=== PATIENT | male | born 1975 | race Hispanic/Latino ===

== ENCOUNTER 2016-02-29 11:09 | Emergency (ER) | payer OTHER ==
[2016-02-29] MEDS ORDERED: GI COCKTAIL 50ML BTL(HYOSCYAMINE/MAALOX/LIDOCAINE VISCOUS)(1:3:1) As Ordered ONE (12:20)
[2016-02-29] MEDS ORDERED: ONDANSETRON 4 MG ORAL DISINTEGRATING TAB (S0181) As Ordered ONE (12:34)
--- NOTE | 2016-02-29 12:49 | REP ---
Clinical: Foreign body. Technique: AP and lateral soft tissue neck. Findings: Airway appears patent and normal. Prevertebral soft tissues and surrounding soft tissues are unremarkable and without subcutaneous emphysema or radiodense foreign body. Osseous structures are intact and normal. Impression: Normal soft tissue neck radiographs. No foreign body identified. Signed by Carlito Nettles MD 02/29/2016 12:41 P
[2016-02-29] MEDS ORDERED: LIDOCAINE W/EPINEPHRINE 1% 20ML VIAL As Ordered ONE (13:54)
--- NOTE | 2016-02-29 14:58 | EDDOCDS ---
Nurse's Notes [facility] Name: Ebenezer Henriquez Age: 40 yrs Sex: Male : 1975 Arrival Date: 02/29/2016 Time: 11:09 Bed I6 / 28 [facility] Diagnosis: Esophagitis-Secondary Emesis (alcohol induced) Presentation: 02/28 11:14 Presenting complaint: Patient states: vomited this am and states something is stuck in po his throat. reports painful swallowing, able to swallow own saliva. Adult Sepsis Screening: The patient does not have new or worsening altered mentation. Patient's respiratory rate is less than 22. Systolic blood pressure is greater than 100. Patient has a qSOFA score of 0- Negative Sepsis Screen. Suicide/Homicide risk assessment- the patient denies having any suicidal and/or homicidal ideations and does not present with any other emotional, behavioral or mental health complaints. Status: The patient is an active duty social services assistant. Transition of care: patient was not received from another setting of care. 11:14 Acuity: CLAUDIA Level 3 po 11:14 Method Of Arrival: Walkin/Carried/Asstd po Triage Assessment: 11:16 General: Appears in no apparent distress, Behavior is appropriate for age, cooperative, po pleasant. Pain: Location: left side of neck Pain currently is 8 out of 10 on a pain scale. Quality of pain is described as sharp, Is continuous. Pt Declines HIV testing. EENT: Reports pain when swallowing. Respiratory: Airway is patent Respiratory effort is even, unlabored. Derm: Skin is pink, warm & dry. Historical: - Allergies: no known allergies; - Home Meds: 1. none - PMHx: Seasonal Allergies; - PSHx: none; - Social history: Smoking status: Patient states former smoker of tobacco. No barriers to communication noted, The patient speaks fluent Yoruba. - Family history: Not pertinent. - : The pt / caregiver states he / she is not on anticoagulants. Home medication list is obtained from the patient. - Exposure Risk Screening:: None identified. Screenin:25 Screening information is obtained from the patient. Fall risk: No risks identified. mlb1 Assistance ADL's: requires no assistance with activities of daily living. Abuse/DV Screen: The patient / caregiver reports he/she is: not in a situation that causes fear, pain or injury. Nutritional screening: No deficits noted. Advance Directives: Currently, there is no health care proxy. There is no active DNR order. There is. home support is adequate. Assessment: 12:44 General: Appears in no apparent distress, comfortable, Behavior is appropriate for age, hs1 cooperative. EENT: Reports that he cannot swallow water. Cardiovascular: No deficits noted. Respiratory: Airway is patent Respiratory effort is even, unlabored, Respiratory pattern is regular, symmetrical. GI: No deficits noted. : No deficits noted. Derm: Skin is pink, warm & dry. normal. 13:53 General: Dr. Rossi in to examine patient. jc4 14:05 General: Nasopharyngeal scope inserted in left nare by Dr. Rossi with nurse escort. jc4 Pt tolerated procedure well. No foreign body found per MD. 14:46 General: Pt sipping brittany gordon. Complains of pain when swallowing. Is able to retain jc4 fluid. No distress noted at this time. 14:55 General: Appears in no apparent distress, comfortable, Behavior is cooperative. jc4 Neurological: Level of Consciousness is awake, alert, Oriented to person, place, time. EENT: patient able to retain fluid. Reports pain when swallowing. Respiratory: Airway is patent Respiratory effort is even, unlabored, Respiratory pattern is regular, symmetrical. Derm: Skin is pink, warm & dry. Vital Signs: 11:11 BP 155 / 94; Pulse 88; Resp 18; Temp 98.1(O); Pulse Ox 97% on R/A; Weight 83.01 kg (R); sar1 Height 6 ft. 0 in. (182.88 cm); Pain 8/10; 14:55 BP 131 / 77; Pulse 72; Resp 20; Temp 97.3(O); Pulse Ox 98% on R/A; jc4 11:11 Body Mass Index 24.82 (83.01 kg, 182.88 cm) sar1 Vitals: 11:11 Log In Time: February 29, 2016 at 11:11. sar1 12:31 Strep Screen is obtained and tested: Negative, a GATSNEG culture is ordered in [facility] mlb1 and sent. ED Course: 11:10 Patient visited by Zenobia Drake, Stock Digger. sar1 11:10 Patient moved to Waiting sar1 11:11 [facility] is Private Physician. sar1 11:12 Patient moved to Pre RCE sar1 11:15 Triage Initiated po 11:17 Arm band placed on right wrist. Patient placed in waiting room. po 11:18 Patient visited by Shane Maradiaga,SELMA. po 11:54 Patient moved to Triage 1 ms18 11:55 Patient visited by Sowmya Florez,SELMA. ms18 12:06 Kristal Romano PA-C is PHCP. ef1 12:06 Deborah Toscano MD is Attending Physician. ef1 12:07 Patient visited by Kristal Romano PA-C. ef1 12:25 The patient / caregiver is instructed regarding the plan of care and ED course. mlb1 12:25 No IV's were initiated during this patient's visit. No procedures done that require mlb1 assistance. 12:30 Patient visited by Kristal Romano PA-C. ef1 12:32 Essence Saini RN is Primary Nurse. ms18 12:32 Patient moved to I ms18 12:36 GATS (NEGATIVE STREP SCREEN) Sent. mlb1 13:01 Patient visited by Kristal Romano PA-C. ef1 13:10 Soft Tissue Neck Returned. EDMS 13:23 Patient visited by Kristal Romano PA-C. ef1 13:37 [facility] Payment Agreement was scanned into FTR[employer] and attached to record. jp5 14:00 Patient visited by Kristal Romano PA-C. ef1 14:40 Patient visited by Kristal Romano PA-C. ef1 14:43 [facility] is Referral Physician. ef1 Administered Medications: 12:24 Drug: GI Cocktail - (Alum-Mag Hydroxide-Simeth Suspension 225 mg-200 mg-25 mg/5 mL 30 ms18 ml, Lidocaine Liquid 2 % 10 ml, Hyoscyamine Liquid 10 ml) Route: PO; 12:35 Drug: Ondansetron ODT 4 mg [ondansetron 4 mg disintegrating tablet (1 tabs)] Route: PO; mlb1 14:03 Drug: Lidocaine-Epinephrine 10 ml [lidocaine-epinephrine 1 %-1:100,000 injection jc4 solution (10 mL)] {Note: Given to Dr. Rossi for use .} Route: Infiltration; Order Results: Radiology Order: Soft Tissue Neck Test: Soft Tissue Neck REASON FOR EXAMINATION: Foreign Body; Clinical: Foreign body.; ; Technique: AP and lateral soft tissue neck.; ; Findings:; Airway appears patent and normal. Prevertebral soft tissues and surrounding soft; tissues are unremarkable and without subcutaneous emphysema or radiodense foreign; body. Osseous structures are intact and normal.; ; Impression:; Normal soft tissue neck radiographs. No foreign body identified.; ; ; Signed by; Carlito Nettles MD 02/29/2016 12:41 P; Outcome: 14:43 Discharge ordered by Provider. ef1 14:56 Discharge Assessment: Patient awake, alert and oriented x 3. No cognitive and/or jc4 functional deficits noted. Patient verbalized understanding of disposition instructions. patient administered narcotics - no. The following High Risk Discharge criteria are identified: None. Discharged to home ambulatory. Condition: stable. Discharge instructions given to patient, Instructed on discharge instructions, follow up and referral plans. medication usage, Demonstrated understanding of instructions, medications, Pt was receptive of discharge instructions/ teaching. No special radiology studies were completed. Property :Personal belongings accompany Pt. 14:57 Patient left the ED. jc4 Signatures: Dispatcher MedHost EDMS Shane Maradiaga,RN RN Suresh Bhakta, RN RN mlb1 Kristal Romano PA-C PAJazmineC ef1 Savanna Newell RN RN hs1 Essence Saini RN RN jc4 Sowmya Florez RN RN ms18 Zenobia Drake, Stock Digger [facility] Nancy Ugarte 5 Corrections: (The following items were deleted from the chart) 11:18 11:14 Presenting complaint: Patient states: vomited this am and states something is po stuck in his esophagus po MTDD
--- NOTE | 2016-02-29 14:58 | EDDOCDS ---
Physician Documentation [facility] Name: Ebenezer Henriquez Age: 40 yrs Sex: Male : 1975 Arrival Date: 02/29/2016 Time: 11:09 Bed I6 / 28 [facility] Dis[facility]: 02/29/16 14:43 Discharged to Home/Self Care. Impression: Esophagitis - Secondary Emesis (alcohol induced). - Condition is Stable. - Discharge Instructions: Esophagitis. - Prescriptions for Maalox Advanced 200- 200-20 mg/5 mL Oral suspension - take 10 milliliter by ORAL route 3 times per day; 1 tube. - Medication Reconciliation, Local Pharmacy Hours form. - Follow up: [facility]; When: 1 - 2 days; Reason: Recheck today's complaints, Continuance of care. Follow up: Emergency Department; Reason: Worsening of conditions. - Problem is new. - Symptoms have improved. - Notes: No spicy foods per Dr Rossi's guidance. Maalox 2 tsp 3 x a day. Solids as tolerated. Increase water intake. Historical: - Allergies: no known allergies; - Home Meds: 1. none - PMHx: Seasonal Allergies; - PSHx: none; - Social history: Smoking status: Patient states former smoker of tobacco. No barriers to communication noted, The patient speaks fluent Bolivian. - Family history: Not pertinent. - : The pt / caregiver states he / she is not on anticoagulants. Home medication list is obtained from the patient. - Exposure Risk Screening:: None identified. Vital Signs: 02/28 11:11 BP 155 / 94; Pulse 88; Resp 18; Temp 98.1(O); Pulse Ox 97% on R/A; Weight 83.01 kg / sar1 183.01 lbs (R); Height 6 ft. 0 in. (182.88 cm); Pain 8/10; 14:55 BP 131 / 77; Pulse 72; Resp 20; Temp 97.3(O); Pulse Ox 98% on R/A; jc4 11:11 Body Mass Index 24.82 (83.01 kg, 182.88 cm) sar1 MDM: 12:18 GI Cocktail - (Alum-Mag Hydroxide-Simeth 30 ml, Lidocaine 10 ml, Hyoscyamine 10 ml) PO ef1 once; Pre-mixed 50mL unit dose ordered. 12:19 Strep Screen, Nursing ordered. ef1 12:31 Ondansetron ODT Oral Disintegrating Tablet 4 mg PO once ordered. ef1 12:32 GATS (NEGATIVE STREP SCREEN) Ordered. EDMS 12:32 Soft Tissue Neck Ordered. EDMS 13:02 NOTHING BY MOUTH+DIET ordered. EDMS 13:37 [facility] Payment Agreement was scanned into Overblog and attached to record. jp5 13:37 Financial registration complete. jp5 13:53 Lidocaine-Epinephrine 1 %-1:100,000 10 ml Infiltration once; to bedside ordered. ef1 14:45 Recheck B/P ordered. ef1 14:46 Fluid Challenge ordered. ef1 Administered Medications: 12:24 Drug: GI Cocktail - (Alum-Mag Hydroxide-Simeth Suspension 225 mg-200 mg-25 mg/5 mL 30 ms18 ml, Lidocaine Liquid 2 % 10 ml, Hyoscyamine Liquid 10 ml) Route: PO; 12:35 Drug: Ondansetron ODT 4 mg [ondansetron 4 mg disintegrating tablet (1 tabs)] Route: PO; mlb1 14:03 Drug: Lidocaine-Epinephrine 10 ml [lidocaine-epinephrine 1 %-1:100,000 injection jc4 solution (10 mL)] {Note: Given to Dr. Rossi for use .} Route: Infiltration; Signatures: Dispatcher MedHost EDMN Shane Maradiaga,RN RN po Suresh Rachel RN RN mlb1 Kristal Romano, PA-C PA-C ef1 Essence Saini RN RN jc4 Nancy Ugarte 5 Sowmya Florez RN ms18 The chart was reviewed and I authenticate all verbal orders and agree with the evaluation and treatment provided.Attachments: 13:37 [facility] Payment Agreement jp5 MTDD
--- NOTE | 2016-03-02 15:58 | EDDOCDS ---
Physician Documentation [facility] Name: Ebenezer Henriquez Age: 40 yrs Sex: Male : 1975 Arrival Date: 02/29/2016 Time: 11:09 Bed I6 / 28 [facility] Disposition: 02/29/16 14:43 Discharged to Home/Self Care. Impression: Esophagitis - Secondary Emesis (alcohol induced). - Condition is Stable. - Discharge Instructions: Esophagitis. - Prescriptions for Maalox Advanced 200- 200-20 mg/5 mL Oral suspension - take 10 milliliter by ORAL route 3 times per day; 1 tube. - Medication Reconciliation, Local Pharmacy Hours form. - Follow up: [facility]; When: 1 - 2 days; Reason: Recheck today's complaints, Continuance of care. Follow up: Emergency Department; Reason: Worsening of conditions. - Problem is new. - Symptoms have improved. - Notes: No spicy foods per Dr Rossi's guidance. Maalox 2 tsp 3 x a day. Solids as tolerated. Increase water intake. Historical: - Allergies: no known allergies; - Home Meds: 1. none - PMHx: Seasonal Allergies; - PSHx: none; - Social history: Smoking status: Patient states former smoker of tobacco. No barriers to communication noted, The patient speaks fluent Algerian. - Family history: Not pertinent. - : The pt / caregiver states he / she is not on anticoagulants. Home medication list is obtained from the patient. - Exposure Risk Screening:: None identified. Vital Signs: 02/28 11:11 BP 155 / 94; Pulse 88; Resp 18; Temp 98.1(O); Pulse Ox 97% on R/A; Weight 83.01 kg / sar1 183.01 lbs (R); Height 6 ft. 0 in. (182.88 cm); Pain 8/10; 14:55 BP 131 / 77; Pulse 72; Resp 20; Temp 97.3(O); Pulse Ox 98% on R/A; jc4 11:11 Body Mass Index 24.82 (83.01 kg, 182.88 cm) sar1 MDM: 12:18 GI Cocktail - (Alum-Mag Hydroxide-Simeth 30 ml, Lidocaine 10 ml, Hyoscyamine 10 ml) PO ef1 once; Pre-mixed 50mL unit dose ordered. 12:19 Strep Screen, Nursing ordered. ef1 12:31 Ondansetron ODT Oral Disintegrating Tablet 4 mg PO once ordered. ef1 12:32 GATS (NEGATIVE STREP SCREEN) Ordered. EDMS 12:32 Soft Tissue Neck Ordered. EDMS 13:02 NOTHING BY MOUTH+DIET ordered. EDMS 13:37 [facility] Payment Agreement was scanned into Vigno and attached to record. 5 13:37 Financial registration complete. jp5 13:53 Lidocaine-Epinephrine 1 %-1:100,000 10 ml Infiltration once; to bedside ordered. ef1 14:45 Recheck B/P ordered. ef1 14:46 Fluid Challenge ordered. ef1 17:43 T-Sheet-- Draft Copy was scanned into Vigno and attached to record. klr 01 12:51 Consents was scanned into Vigno and attached to record. gb 12:52 Radiology Report was scanned into Vigno and attached to record. gb Administered Medications: 02/28 12:24 Drug: GI Cocktail - (Alum-Mag Hydroxide-Simeth Suspension 225 mg-200 mg-25 mg/5 mL 30 ms18 ml, Lidocaine Liquid 2 % 10 ml, Hyoscyamine Liquid 10 ml) Route: PO; 12:35 Drug: Ondansetron ODT 4 mg [ondansetron 4 mg disintegrating tablet (1 tabs)] Route: PO; mlb1 14:03 Drug: Lidocaine-Epinephrine 10 ml [lidocaine-epinephrine 1 %-1:100,000 injection jc4 solution (10 mL)] {Note: Given to Dr. Rossi for use .} Route: Infiltration; Signatures: Dispatcher MedHost EDMS Shane Maradiaga,RN RN po Sindy Bruno, Reg Reg gb Suresh Rachel RN RN mlb1 Kristal Romano PA-C PAMaryuri ef1 Essence Saini RN RN jc4 Nancy Ugarte jp5 Deidre Bazzi Mallory RN ms18 The chart was reviewed and I authenticate all verbal orders and agree with the evaluation and treatment provided.Attachments: 13:37 [facility] Payment Agreement 5 17:43 T-Sheet-- Draft Copy [facility] Chart Complete MTDD
--- NOTE | 2016-03-02 15:58 | EDDOCDS ---
Physician Documentation [facility] Name: Ebenezer Henriquez Age: 40 yrs Sex: Male : 1975 Arrival Date: 02/29/2016 Time: 11:09 Bed I6 / 28 [facility] Disposition: 02/29/16 14:43 Discharged to Home/Self Care. Impression: Esophagitis - Secondary Emesis (alcohol induced). - Condition is Stable. - Discharge Instructions: Esophagitis. - Prescriptions for Maalox Advanced 200- 200-20 mg/5 mL Oral suspension - take 10 milliliter by ORAL route 3 times per day; 1 tube. - Medication Reconciliation, Local Pharmacy Hours form. - Follow up: [place]; When: 1 - 2 days; Reason: Recheck today's complaints, Continuance of care. Follow up: Emergency Department; Reason: Worsening of conditions. - Problem is new. - Symptoms have improved. - Notes: No spicy foods per Dr Rossi's guidance. Maalox 2 tsp 3 x a day. Solids as tolerated. Increase water intake. Historical: - Allergies: no known allergies; - Home Meds: 1. none - PMHx: Seasonal Allergies; - PSHx: none; - Social history: Smoking status: Patient states former smoker of tobacco. No barriers to communication noted, The patient speaks fluent [place]. - Family history: Not pertinent. - : The pt / caregiver states he / she is not on anticoagulants. Home medication list is obtained from the patient. - Exposure Risk Screening:: None identified. Vital Signs: 02/28 11:11 BP 155 / 94; Pulse 88; Resp 18; Temp 98.1(O); Pulse Ox 97% on R/A; Weight 83.01 kg / sar1 183.01 lbs (R); Height 6 ft. 0 in. (182.88 cm); Pain 8/10; 14:55 BP 131 / 77; Pulse 72; Resp 20; Temp 97.3(O); Pulse Ox 98% on R/A; jc4 11:11 Body Mass Index 24.82 (83.01 kg, 182.88 cm) sar1 MDM: 12:18 GI Cocktail - (Alum-Mag Hydroxide-Simeth 30 ml, Lidocaine 10 ml, Hyoscyamine 10 ml) PO ef1 once; Pre-mixed 50mL unit dose ordered. 12:19 Strep Screen, Nursing ordered. ef1 12:31 Ondansetron ODT Oral Disintegrating Tablet 4 mg PO once ordered. ef1 12:32 GATS (NEGATIVE STREP SCREEN) Ordered. EDMS 12:32 Soft Tissue Neck Ordered. EDMS 13:02 NOTHING BY MOUTH+DIET ordered. EDMS 13:37 [facility] Payment Agreement was scanned into DocSend and attached to record. 5 13:37 Financial registration complete. jp5 13:53 Lidocaine-Epinephrine 1 %-1:100,000 10 ml Infiltration once; to bedside ordered. ef1 14:45 Recheck B/P ordered. ef1 14:46 Fluid Challenge ordered. ef1 17:43 T-Sheet-- Draft Copy was scanned into DocSend and attached to record. klr 01 12:51 Consents was scanned into DocSend and attached to record. gb 12:52 Radiology Report was scanned into DocSend and attached to record. gb Administered Medications: 02/28 12:24 Drug: GI Cocktail - (Alum-Mag Hydroxide-Simeth Suspension 225 mg-200 mg-25 mg/5 mL 30 ms18 ml, Lidocaine Liquid 2 % 10 ml, Hyoscyamine Liquid 10 ml) Route: PO; 12:35 Drug: Ondansetron ODT 4 mg [ondansetron 4 mg disintegrating tablet (1 tabs)] Route: PO; mlb1 14:03 Drug: Lidocaine-Epinephrine 10 ml [lidocaine-epinephrine 1 %-1:100,000 injection jc4 solution (10 mL)] {Note: Given to Dr. Rossi for use .} Route: Infiltration; Signatures: Dispatcher MedHost EDMS Shane Maradiaga,RN RN po Sindy Bruno, Reg Reg gb Suresh Rachel RN RN mlb1 Kristal Romano PA-C PAMaryuri ef1 Essence Saini RN RN jc4 Nancy Ugarte jp5 Deidre Bazzi Mallory RN ms18 The chart was reviewed and I authenticate all verbal orders and agree with the evaluation and treatment provided.Attachments: 13:37 [facility] Payment Agreement 5 17:43 T-Sheet-- Draft Copy [facility] Chart Complete MTDD
--- NOTE | 2016-03-02 15:58 | EDDOCDS ---
Nurse's Notes [facility] Name: Ebenezer Henriquez Age: 40 yrs Sex: Male : 1975 Arrival Date: 02/29/2016 Time: 11:09 Bed I6 / 28 [facility] Diagnosis: Esophagitis-Secondary Emesis (alcohol induced) Presentation: 02/28 11:14 Presenting complaint: Patient states: vomited this am and states something is stuck in po his throat. reports painful swallowing, able to swallow own saliva. Adult Sepsis Screening: The patient does not have new or worsening altered mentation. Patient's respiratory rate is less than 22. Systolic blood pressure is greater than 100. Patient has a qSOFA score of 0- Negative Sepsis Screen. Suicide/Homicide risk assessment- the patient denies having any suicidal and/or homicidal ideations and does not present with any other emotional, behavioral or mental health complaints. Status: The patient is an active duty customer service advocate. Transition of care: patient was not received from another setting of care. 11:14 Acuity: CLAUDIA Level 3 po 11:14 Method Of Arrival: Walkin/Carried/Asstd po Triage Assessment: 11:16 General: Appears in no apparent distress, Behavior is appropriate for age, cooperative, po pleasant. Pain: Location: left side of neck Pain currently is 8 out of 10 on a pain scale. Quality of pain is described as sharp, Is continuous. Pt Declines HIV testing. EENT: Reports pain when swallowing. Respiratory: Airway is patent Respiratory effort is even, unlabored. Derm: Skin is pink, warm & dry. Historical: - Allergies: no known allergies; - Home Meds: 1. none - PMHx: Seasonal Allergies; - PSHx: none; - Social history: Smoking status: Patient states former smoker of tobacco. No barriers to communication noted, The patient speaks fluent Romanian. - Family history: Not pertinent. - : The pt / caregiver states he / she is not on anticoagulants. Home medication list is obtained from the patient. - Exposure Risk Screening:: None identified. Screenin:25 Screening information is obtained from the patient. Fall risk: No risks identified. mlb1 Assistance ADL's: requires no assistance with activities of daily living. Abuse/DV Screen: The patient / caregiver reports he/she is: not in a situation that causes fear, pain or injury. Nutritional screening: No deficits noted. Advance Directives: Currently, there is no health care proxy. There is no active DNR order. There is. home support is adequate. Assessment: 12:44 General: Appears in no apparent distress, comfortable, Behavior is appropriate for age, hs1 cooperative. EENT: Reports that he cannot swallow water. Cardiovascular: No deficits noted. Respiratory: Airway is patent Respiratory effort is even, unlabored, Respiratory pattern is regular, symmetrical. GI: No deficits noted. : No deficits noted. Derm: Skin is pink, warm & dry. normal. 13:53 General: Dr. Rossi in to examine patient. jc4 14:05 General: Nasopharyngeal scope inserted in left nare by Dr. Rossi with nurse escort. jc4 Pt tolerated procedure well. No foreign body found per MD. 14:46 General: Pt sipping brittany gordon. Complains of pain when swallowing. Is able to retain jc4 fluid. No distress noted at this time. 14:55 General: Appears in no apparent distress, comfortable, Behavior is cooperative. jc4 Neurological: Level of Consciousness is awake, alert, Oriented to person, place, time. EENT: patient able to retain fluid. Reports pain when swallowing. Respiratory: Airway is patent Respiratory effort is even, unlabored, Respiratory pattern is regular, symmetrical. Derm: Skin is pink, warm & dry. Vital Signs: 11:11 BP 155 / 94; Pulse 88; Resp 18; Temp 98.1(O); Pulse Ox 97% on R/A; Weight 83.01 kg (R); sar1 Height 6 ft. 0 in. (182.88 cm); Pain 8/10; 14:55 BP 131 / 77; Pulse 72; Resp 20; Temp 97.3(O); Pulse Ox 98% on R/A; jc4 11:11 Body Mass Index 24.82 (83.01 kg, 182.88 cm) sar1 Vitals: 11:11 Log In Time: February 29, 2016 at 11:11. sar1 12:31 Strep Screen is obtained and tested: Negative, [facility] and sent. ED Course: 11:10 Patient visited by Zenobia Drake, Media Analytics Manager. sar1 11:10 Patient moved to Waiting sar1 11:11 [facility] is Private Physician. sar1 11:12 Patient moved to Pre RCE sar1 11:15 Triage Initiated po 11:17 Arm band placed on right wrist. Patient placed in waiting room. po 11:18 Patient visited by Shane Maradiaga,SELMA. po 11:54 Patient moved to Triage 1 ms18 11:55 Patient visited by Sowmya Florez,SELMA. ms18 12:06 Kristal Romano PA-C is PHCP. ef1 12:06 Deborah Toscano MD is Attending Physician. ef1 12:07 Patient visited by Kristal Romano PA-C. ef1 12:25 The patient / caregiver is instructed regarding the plan of care and ED course. mlb1 12:25 No IV's were initiated during this patient's visit. No procedures done that require mlb1 assistance. 12:30 Patient visited by Kristal Romano PA-C. ef1 12:32 Essence Saini RN is Primary Nurse. ms18 12:32 Patient moved to I ms18 12:36 GATS (NEGATIVE STREP SCREEN) Sent. mlb1 13:01 Patient visited by Kristal Romano PA-C. ef1 13:10 Soft Tissue Neck Returned. EDMS 13:23 Patient visited by Kristal Romano PA-C. ef1 13:37 [facility] Payment Agreement was scanned into [employer] and attached to record. jp5 14:00 Patient visited by Kristal Romano PA-C. ef1 14:40 Patient visited by Kristal Romano PA-C. ef1 14:43 [facility] is Referral Physician. ef1 17:43 T-Sheet-- Draft Copy was scanned into [employer] and attached to record. klr 03/01 12:51 Consents was scanned into [employer] and attached to record. gb 12:52 Radiology Report was scanned into [employer] and attached to record. gb Administered Medications: 02/28 12:24 Drug: GI Cocktail - (Alum-Mag Hydroxide-Simeth Suspension 225 mg-200 mg-25 mg/5 mL 30 ms18 ml, Lidocaine Liquid 2 % 10 ml, Hyoscyamine Liquid 10 ml) Route: PO; 12:35 Drug: Ondansetron ODT 4 mg [ondansetron 4 mg disintegrating tablet (1 tabs)] Route: PO; mlb1 14:03 Drug: Lidocaine-Epinephrine 10 ml [lidocaine-epinephrine 1 %-1:100,000 injection jc4 solution (10 mL)] {Note: Given to Dr. Rossi for use .} Route: Infiltration; Attachments: 03/01 12:51 Consents gb Order Results: Lab Order: GATS (NEGATIVE STREP SCREEN); SPEC'M 02/29/16 12:36 Test: GATS CULTURE (NEG STREP SCR); Value: GATS RESULT NEGATIVE FOR STREP PYOGENES (GROUP A); Status: F Radiology Order: Soft Tissue Neck Test: Soft Tissue Neck REASON FOR EXAMINATION: Foreign Body; Clinical: Foreign body.; ; Technique: AP and lateral soft tissue neck.; ; Findings:; Airway appears patent and normal. Prevertebral soft tissues and surrounding soft; tissues are unremarkable and without subcutaneous emphysema or radiodense foreign; body. Osseous structures are intact and normal.; ; Impression:; Normal soft tissue neck radiographs. No foreign body identified.; ; ; Signed by; Carlito Nettles MD 02/29/2016 12:41 P; Outcome: 02/28 14:43 Discharge ordered by Provider. ef1 14:56 Discharge Assessment: Patient awake, alert and oriented x 3. No cognitive and/or jc4 functional deficits noted. Patient verbalized understanding of disposition instructions. patient administered narcotics - no. The following High Risk Discharge criteria are identified: None. Discharged to home ambulatory. Condition: stable. Discharge instructions given to patient, Instructed on discharge instructions, follow up and referral plans. medication usage, Demonstrated understanding of instructions, medications, Pt was receptive of discharge instructions/ teaching. No special radiology studies were completed. Property :Personal belongings accompany Pt. 14:57 Patient left the ED. jc4 Signatures: Dispatcher [employer] EDMS Shane Maradiaga RN RN po Sindy Bruno, Reg Reg Suresh Gallo RN RN mlb1 Kristal Romano, PA-C PA-C ef1 Savanna Newell RN RN hs1 Essence Saini RN RN jc4 Sowmya Florez RN RN ms18 Zenobia Drake, Media Analytics Manager Unit sar1 Nancy Ugarte jpDeidre Childress Corrections: (The following items were deleted from the chart) 11:18 11:14 Presenting complaint: Patient states: vomited this am and states something is po stuck in his esophagus po Chart Complete MTDD
== END 2016-02-29 14:57 | disposition home or self-care (01) ==
LOC: M ED 11:09
DX: K20.9 Esophagitis, unspecified (principal); R11.10 Vomiting, unspecified; J30.2 Other seasonal allergic rhinitis; Z87.891 Personal history of nicotine dependence